=== PATIENT | female | born 1955 | race Caucasian/White ===

== ENCOUNTER 2016-09-23 09:54 | Observation (INO) | payer BC ==
--- NOTE | ~2016-09-23 | HP ---
History And Physical [place] [id number] [facility] [place]. [address] NAME: LOWELL YEPEZ : 55 STATUS : ADM Gianfranco PAT#: [id number] AGE: 61 ADM/REG DATE : 09/23/16 MR#: [id number] REPORT SERV DATE: 09/23/16 DICTATED BY: ANGELA RODRIGUES DATE: 09/23/16 REPORT STATUS : Draft TRANSCRIBED BY: MODClint DATE: 09/23/16 DATE OF ADMISSION: 09/23/2016 CRM ARCHITECT: Dr. Smith. CHIEF COMPLAINT: Tingling in both arms with mild chest tightness. HISTORY OF PRESENT ILLNESS: A very pleasant 61-year-old white female with stress cardiomyopathy and mild CAD identified by cath [place] [address] Downey with an EF of 35% at that time, now improved to 60% by echo in 07/2014. The patient's states that she experienced tingling in both of her arms over the last two days, which she states is similar to when she had low magnesium in the past. She also describes some minimal chest tightness, which is dissimilar to her previous cardiac event in 2013. She states that she has been under considerable stress at home. She rates her chest pain at 2/10 at its most intense. She is now chest pain free. She did take a Nexium at home prior to coming to the hospital. She reports associated nausea. Denies shortness of breath, diaphoresis, dyspnea after belching. There is no exertional component. Describes that patient reports a personal history of one myocardial infarction in 2013. Denies history of stroke, DVT, or pulmonary embolus. The patient denies any recent fever or chills. No palpitations. No syncopal episodes. Denies PND or orthopnea. PAST MEDICAL HISTORY: 1. Mild CAD by cath in 2013 with an EF of 60% by echo in 07/2014. 2. Hypertension. 3. AODM. 4. Dyslipidemia, intolerant of statin. 5. Ongoing tobacco abuse. 6. Positive family history for early CAD. PAST SURGICAL HISTORY: 1. Hysterectomy. 2. Left ankle reconstruction secondary to tendon. SOCIAL HISTORY: She is single with no children. She is employed as a despatcher. She does not have a structured exercise routine. Currently smokes a half pack per day, but has smoked as much as two packs per day over the last 35 years. Denies alcohol or illicits. FAMILY HISTORY: Father with heart attack in his 60s, diabetes at 75. REVIEW OF SYSTEMS: A 14-point review of systems is significant per HPI including home blood sugars of 115, otherwise complete review of systems obtained and negative. ALLERGIES: NO KNOWN DRUG ALLERGIES. History And Physical [address] [address] NAME: LOWELL YEPEZ : 55 STATUS : ADM Gianfranco PAT#: [id number] AGE: 61 ADM/REG DATE : 09/23/16 MR#: [id number] REPORT SERV DATE: 09/23/16 DICTATED BY: ANGELA RODRIGUES DATE: 09/23/16 REPORT STATUS : Draft TRANSCRIBED BY: YANDEL DATE: 09/23/16 HOME MEDICINES: Per patient's verbal report, Janumet twice daily, Ingris 180 mg daily p.r.n., lisinopril/hydrochlorothiazide 20/12.5 daily, carvedilol 6.25 mg twice daily, aspirin 81 mg daily, Estroven over the counter daily, Nexium 40 mg twice daily, fenofibrate 160 mg nightly, Prozac 20 mg nightly, magnesium oxide 500 mg twice daily, calcium 800 mg nightly, vitamin D 300 mg nightly, multivitamin daily, Robaxin 500 mg daily p.r.n., Mobic 15 mg daily. PHYSICAL EXAMINATION: VITAL SIGNS: Blood pressure 137/63, pulse 71, respirations 14, temperature 98.1, O2 saturation 97% on room air. Height 5 feet 7 inches, weight 167 pounds. GENERAL: Cooperative, in no apparent distress. HEENT: Pupils 2 mm, sclera nonicteric. Nares patent. Moist mucous membranes. No xanthelasma. NECK: Trachea midline, no thyromegaly. No JVD. No bruits. LYMPH: No cervical lymphadenopathy. No supraclavicular lymphadenopathy. RESPIRATORY: Diminished in the bases. CARDIOVASCULAR: Regular rate. No murmur, rub or gallop appreciated. Extremities without edema. Pulses 2+ bilaterally. ABDOMEN: Soft, nontender, nondistended, normal bowel sounds auscultated throughout. No organomegaly. SKIN: Warm, dry extremities. No pallor, or cyanosis. PSYCHIATRIC: Appropriate affect. Alert, oriented x3. LABORATORY DATA: Troponin less than 0.02, second and third pending. Potassium 3.6, BUN 17, creatinine 1.03, glucose 150, calcium 9.2, magnesium 1.3. WBC 12.1, hemoglobin 13.7, hematocrit 41.1, platelet count 380,000. EKG; sinus rhythm. Echo, 07/2014, EF 60% (previously 40% in 04/2014). Cath, 2013 (Negus: Mild CAD, EF 35%). ASSESSMENT AND PLAN: 1. Tingling in both arms similar to previous hypomagnesemia. Replete magnesium per protocol. Recheck magnesium per protocol. 2. Mild chest pain. Mild and dissimilar to 2014 cardiac event. Question rule out and home in morning versus further cardiac testing. The patient will be by rounding permit review assistant today. Further recommendations forthcoming. 3. Hypertension. Monitor blood pressure. Continue home medications. 4. Dyslipidemia, statin intolerant. Continue fenofibrate, diet, and exercise. Her choice is discussed. 5. Adult-onset diabetes mellitus. Hold metformin. Level 1 sliding scale correction. 6. Hypomagnesemia, being repleted per protocol. Will recheck labs per protocol. BEATRIZ/YANDEL History And Physical [address] [place]. [address] NAME: LOWELL YEPEZ : 55 STATUS : ADM Gianfranco PAT#: [id number] AGE: 61 ADM/REG DATE : 09/23/16 MR#: [id number] REPORT SERV DATE: 09/23/16 DICTATED BY: ANGELA RODRIGUES DATE: 09/23/16 REPORT STATUS : Draft TRANSCRIBED BY: MODL DATE: 09/23/16 Angela Rodrigues MSN, DRILL OPERATOR PNEUMATIC-BC / [id number] CC: SURESH De La Cruz, DRILL OPERATOR PNEUMATIC-BC Marely Mary MD
[~2016-09-23 09:54] MED LIST: ASAB PO; COREG3 PO; JANUMET1 TA1 PO; LIPITOR40 PO; LOFIB160 PO; NEXIUM40 PO; PROZAC PO; ZESTORETIC PO
[2016-09-23 10:06] LABS: BASOPHILS 0.1 %; BASOPHILS ABSOLUTE 0.01 10/3/uL (0.0-0.16); EOSINOPHILS 0.4 %; EOSINOPHILS ABSOLUTE 0.05 10/3/uL (0.0-0.53); HEMATOCRIT 41.1 % (36.0-48.0); HEMOGLOBIN 13.7 g/dL (12.0-16.0); IMMATURE GRANULOCYTES 0.2 %; IMMATURE GRANULOCYTES ABSOLUTE 0.02 10/3/uL (0.0-0.11); LYMPHOCYTES 10.9 %; LYMPHOCYTES ABSOLUTE 1.32 10/3/uL (0.67-4.30); MEAN CORPUS HGB CONC 33.3 g/dL (32.0-36.0); MEAN CORPUSCULAR HEMOGLOB 28.9 pg (26.0-34.0); MEAN CORPUSCULAR VOLUME 86.7 fL (80-100); MEAN PLATELET VOLUME 10.7 fL (9.2-13.0); MONOCYTES 4.6 %; MONOCYTES ABSOLUTE 0.55 10/3/uL (0.21-1.20); NEUTROPHILS 83.8 %; NEUTROPHILS ABSOLUTE 10.13 10/3/uL (2.02-8.40); PLATELET COUNT 380 10/3/uL (150-400); RBC DISTRIBUTION WIDTH 15.7 % (12.0-16.0); RED CELL COUNT 4.74 10/6/uL (4.0-5.6); WHITE BLOOD CELLS 12.1 10/3/uL (4.5-10.5)
[2016-09-23 10:07] LABS: MANUAL DIFF NO %
[2016-09-23 10:14] LABS: INTERNATIONAL NORMAL RATI 0.9 UNITS (-); PARTIAL THROMBO TIME 24.2 SEC (22.5-37.2); PROTIME (NOT ORD) 12.1 SEC (12.0-14.5)
[2016-09-23 10:24] LABS: BUN (BLOOD UREA NITROGEN) 17 MG/DL (6-23); CALCIUM, SERUM 9.2 MG/DL (8.5-10.4); CHEST PAIN PROFILE TAT 0 Hrs 22 Mins; CHLORIDE, SERUM 99 MMOL/L (96-112); CO2 (CARBON DIOXIDE) 30 MMOL/L (24-34); CREATININE 1.03 MG/DL (0.55-1.02); GFR AFRICAN AMERICAN 68 ML/MIN (>=60); GFR NON AFRICAN AMERICAN 59 ML/MIN (>=60); GLUCOSE, SERUM 150 MG/DL (60-99); POTASSIUM, SERUM 3.6 MMOL/L (3.5-5.3); SODIUM, SERUM 138 MMOL/L (135-148); TROPONIN I <0.02 NG/ML (<0.05)
[2016-09-23] MEDS ORDERED: JANUMET1 TA1 PO (11:28)
[2016-09-23] MEDS ORDERED: ALLEGRA180 PO (11:29)
[2016-09-23] MEDS ORDERED: PRINZIDE1 TA1 PO (11:29)
[2016-09-23] MEDS ORDERED: ASAB PO (11:30)
[2016-09-23] MEDS ORDERED: COREG6 PO (11:30)
[2016-09-23] MEDS ORDERED: ESTROVEN OTC PO (11:32)
[2016-09-23] MEDS ORDERED: LOFIB160 PO (11:33)
[2016-09-23] MEDS ORDERED: NEXIUM40 PO (11:33)
[2016-09-23] MEDS ORDERED: MAG OXIDE250 MG PO (11:34)
[2016-09-23] MEDS ORDERED: PROZAC PO (11:34)
[2016-09-23] MEDS ORDERED: CALCIUM PO (11:35)
[2016-09-23] MEDS ORDERED: MULTIVITAMI1 PO (11:36)
[2016-09-23] MEDS ORDERED: VITAMIN D PO (11:36)
[2016-09-23] MEDS ORDERED: METHOC500B PO (11:37)
[2016-09-23] MEDS ORDERED: MOBIC15 MG PO (11:37)
[2016-09-23 16:57] LABS: TROPONIN I <0.02 NG/ML (<0.05)
== END 2016-09-24 11:00 | disposition home or self-care (01) ==
LOC: ER 09:54 → CDU1 11:39 → CDU2 12:12
PROVIDERS: Clinical Nurse Specialist; Nurse Practitioner
DX: R07.9 Chest pain, unspecified (principal); R20.2 Paresthesia of skin; I42.9 Cardiomyopathy, unspecified; I25.10 Atherosclerotic heart disease of native coronary artery without angina pectoris; I10 Essential (primary) hypertension; E11.9 Type 2 diabetes mellitus without complications; E78.5 Hyperlipidemia, unspecified; Z90.710 Acquired absence of both cervix and uterus; Z98.890 Other specified postprocedural states; F17.210 Nicotine dependence, cigarettes, uncomplicated; Z79.82 Long term (current) use of aspirin; Z79.899 Other long term (current) drug therapy; E83.42 Hypomagnesemia
CPT/HCPCS: 71010; 80048; 82962; 83735; 84484; 85025; 85610; 85730; 93005; 96365; 99285; A9270-GY; G0378